=== PATIENT | female | born 1975 | race African-American/Black ===

== ENCOUNTER 2024-05-12 09:15 | Emergency (ER) | payer MEDICAID ==
[~2024-05-12] VITALS: Ht 170.2 cm; Wt 144.0 kg
[2024-05-12 09:22] VITALS: BP 177/120; PULSE 122; RESP 18; TEMP 98.6; O2SAT 100; O2SAT 99
[2024-05-12] MEDS ORDERED: DIPHENHYDRAMINE 25MG CAPSULE PO ONE (09:30)
[2024-05-12] MEDS ORDERED: P20 MT (10:25)
[2024-05-12] MEDS: DIPHENHYDRAMINE 25MG CAPSULE PO NR (11:29)
[2024-05-12] MEDS: PREDNISONE 20MG TABLET PO ONE (11:29)
== END 2024-05-12 11:30 | disposition home or self-care (01) ==
LOC: ER 09:15
DX: T78.40XA Allergy, unspecified, initial encounter (principal); E78.00 Pure hypercholesterolemia, unspecified; I10 Essential (primary) hypertension; Z88.0 Allergy status to penicillin; X58.XXXA Exposure to other specified factors, initial encounter
CPT/HCPCS: 99283; Q0163; J7512

== ENCOUNTER 2024-10-04 07:31 | Emergency (ER) | payer MEDICAID ==
[~2024-10-04] VITALS: Ht 170.2 cm; Wt 143.0 kg
[~2024-10-04 07:31] MED LIST: P20 MT
[2024-10-04 07:42] VITALS: O2SAT 99
[2024-10-04] MEDS ORDERED: CIPHCO RIGHT EAR (08:43)
[2024-10-04 09:11] VITALS: BP 175/93; PULSE 76; RESP 18; TEMP 36.9; O2SAT 96
== END 2024-10-04 09:20 | disposition home or self-care (01) ==
LOC: ER 07:31
DX: H60.8X1 Other otitis externa, right ear (principal); E78.00 Pure hypercholesterolemia, unspecified; I10 Essential (primary) hypertension; J45.909 Unspecified asthma, uncomplicated; Z88.0 Allergy status to penicillin; Z79.899 Other long term (current) drug therapy
CPT/HCPCS: 99283; Z7610 ×2

== ENCOUNTER 2025-02-21 19:24 | Emergency (ER) | payer MEDICAID ==
[~2025-02-21 19:24] MED LIST changes: +CIPHCO RIGHT EAR
[2025-02-21 19:41] VITALS: PULSE 108; RESP 20; O2SAT 98
[2025-02-22] MEDS ORDERED: LIDO-53 TP (17:13)
[2025-02-22] MEDS ORDERED: NAPR-1176 MT (17:13)
== END 2025-02-21 21:09 | disposition left against medical advice (07) ==
LOC: ER 19:24
DX: M79.601 Pain in right arm (principal); Z53.21 Procedure and treatment not carried out due to patient leaving prior to being seen by health care provider
CPT/HCPCS: 99281

== ENCOUNTER 2025-02-22 15:05 | Emergency (ER) | payer MEDICAID ==
[~2025-02-22] VITALS: Ht 170.2 cm; Wt 154.0 kg
[2025-02-22 15:09] VITALS: O2SAT 96
[2025-02-22] MEDS: KETOROLAC 15MG/ML VIAL IM ONE (16:51)
[2025-02-22] MEDS: LIDOCAINE 5% PATCH TOP SCH (16:51)
[2025-02-22 17:05] VITALS: BP 147/88; PULSE 86; RESP 18; TEMP 36.5; O2SAT 96
[2025-02-22] MEDS ORDERED: LIDO-53 TP (17:13)
[2025-02-22] MEDS ORDERED: NAPR-1176 MT (17:13)
== END 2025-02-22 17:05 | disposition home or self-care (01) ==
LOC: ER 15:05
DX: F41.9 Anxiety disorder, unspecified (principal); J45.909 Unspecified asthma, uncomplicated; F32.A Depression, unspecified; E78.00 Pure hypercholesterolemia, unspecified; I10 Essential (primary) hypertension; Z79.1 Long term (current) use of non-steroidal anti-inflammatories (NSAID); M25.511 Pain in right shoulder; Z98.890 Other specified postprocedural states; Z79.899 Other long term (current) drug therapy; Z88.0 Allergy status to penicillin; W19.XXXA Unspecified fall, initial encounter; Y93.89 Activity, other specified; Y92.89 Other specified places as the place of occurrence of the external cause; Y99.8 Other external cause status
CPT/HCPCS: 99284; 73000; 73030; 96372; J1885